=== PATIENT | female | born 1960 | race Caucasian/White ===

== ENCOUNTER 2018-07-02 11:23 | Inpatient (IN) | payer OTHER ==
[2018-07-02] MEDS ORDERED: ACETAMINOPHEN 325 MG TAB ONE ×3 (11:38→19:41)
[2018-07-02] MEDS ORDERED: ACETAMINOPHEN 325 MG TAB PO ONE ×3 (11:47→19:45)
[2018-07-02 12:04] LABS: PLATELET COUNT 229 10^3/uL (150-400)
--- NOTE | 2018-07-02 12:36 | EDPHY ---
H & P Time Seen by Provider: 07/02/18 11:32 HPI/ROS: CHIEF COMPLAINT: M1 hold, noncompliant with medications HISTORY OF PRESENT ILLNESS: 57-year-old female with a known history of schizoaffective disorder presents to the emergency department on M1 hold. Patient has been noncompliant with her court-ordered medications and she is delusional. She was just at [facility] and they sent her here on M1 hold. Patient denies suicidal homicidal ideation. Denies auditory or visual hallucinations. She currently has no physical complaints. She states"I am because I feel movement". She does also state "I am postmenopausal ". She denies chest pain or difficulty breathing. Denies abdominal pain. Denies headache. Denies injury to upper or lower extremities. She drinks 1 beer per day. She smokes cigarettes. She denies any other substance abuse. REVIEW OF SYSTEMS: Constitutional: No fever, no chills. Eyes: No double or blurry vision. ENT: No sore throat. Respiratory: No cough, no shortness of breath. Cardiac: No chest pain. Gastrointestinal: No abdominal pain, vomiting or diarrhea. Genitourinary: No dysuria. Musculoskeletal: No neck or back pain. Skin: No rashes. Neurological: No headache. Past Medical/Surgical History: Schizoaffective disorder noncompliant with court-ordered medications Social History: Single and lives alone in [place] Smoking Status: Current some day smoker Physical Exam: General Appearance: Alert, no distress. Eyes: Pupils equal and round. Extraocular motions are all intact. ENT: Mouth: Mucous membranes moist. Poor dentition. Missing numerous teeth. Respiratory: No wheezing, rhonchi, or rales, lungs are clear to auscultation. Cardiovascular: Regular rate and rhythm. Gastrointestinal: Abdomen is obese and soft and nontender, no masses, no rebound or guarding, bowel sounds normal. Neurological: Alert and oriented x 3, cranial nerves II through XII grossly intact Skin: Warm and dry, no rashes. Musculoskeletal: Nontender to palpate along the cervical, thoracic or lumbar spine. Neck is supple. Extremities: Full range of motion and no peripheral edema. Psychiatric: Patient is oriented X 3, there is no agitation. Constitutional: Initial Vital Signs Temperature (C) 36.6 C 07/02/18 12:19 Heart Rate 89 07/02/18 12:19 Respiratory Rate 18 07/02/18 12:19 Blood Pressure 134/81 H 07/02/18 12:19 O2 Sat (%) 95 07/02/18 12:19 O2 Delivery Mode Room Air Allergies/Adverse Reactions: No Known Allergies Allergy (Unverified 07/02/18 15:02) Medical Decision Making ED Course/Re-evaluation: The patient has been medically cleared and is awaiting mental health evaluation. The patient has been evaluated by mental health and they are looking for placement. She is kept on M1 hold. Differential Diagnosis: Depression including functional and major depression, situational depression, medication side effect, drugs and alcohol abuse. Care Turn Over: Care will be turned over to Dr. Brooks Cordero at 5:00 p.m. For disposition and plan. - Data Points Laboratory Results: Laboratory Results 07/02/18 11:45 07/02/18 11:45 07/02/18 07/02/18 07/02/18 11:45 11:45 11:45 WBC RBC Hgb Hct MCV MCH MCHC RDW Plt Count MPV Neut % (Auto) Lymph % (Auto) [place] % (Auto) Eos % (Auto) Baso % (Auto) Nucleat RBC Rel Count Absolute Neuts (auto) Absolute Lymphs (auto) Absolute Monos (auto) Absolute Eos (auto) Absolute Basos (auto) Absolute Nucleated RBC Immature Gran % Immature Gran # Sodium 144 mEq/L mEq/L (135-145) Potassium 4.4 mEq/L mEq/L (3.3-5.0) Chloride 112 mEq/L H mEq/L (97-110) Carbon Dioxide 22 mEq/l mEq/l (22-31) Anion Gap 10 mEq/L mEq/L (8-16) BUN 9 mg/dL mg/dL (7-23) Creatinine 0.8 mg/dL mg/dL (0.6-1.0) Estimated GFR > 60 Glucose 109 mg/dL H mg/dL (70-100) Calcium 10.3 mg/dL mg/dL (8.5-10.4) TSH 1.200 uIU/mL uIU/mL (0.465-4.680) Beta HCG, Qual NEGATIVE Urine Opiates Screen NEGATIVE (NEGATIVE) Urine Barbiturates NEGATIVE (NEGATIVE) Ur Phencyclidine Scrn NEGATIVE (NEGATIVE) Ur Amphetamine Screen NEGATIVE (NEGATIVE) U Benzodiazepines Scrn NEGATIVE (NEGATIVE) Urine Cocaine Screen NEGATIVE (NEGATIVE) U Marijuana (THC) Screen NEGATIVE (NEGATIVE) Ethyl Alcohol < 10 mg/dL mg/dL (0-10) 07/02/18 11:45 WBC 7.35 10^3/uL 10^3/uL (3.80-9.50) RBC 5.47 10^6/uL H 10^6/uL (4.18-5.33) Hgb 17.6 g/dL H g/dL (12.6-16.3) Hct 51.6 % H % (38.0-47.0) MCV 94.3 fL fL (81.5-99.8) MCH 32.2 pg pg (27.9-34.1) MCHC 34.1 g/dL g/dL (32.4-36.7) RDW 13.1 % % (11.5-15.2) Plt Count 229 10^3/uL 10^3/uL (150-400) MPV 9.6 fL fL (8.7-11.7) Neut % (Auto) 50.0 % % (39.3-74.2) Lymph % (Auto) 36.5 % % (15.0-45.0) [place] % (Auto) 8.6 % % (4.5-13.0) Eos % (Auto) 3.4 % % (0.6-7.6) Baso % (Auto) 1.1 % % (0.3-1.7) Nucleat RBC Rel Count 0.0 % % (0.0-0.2) Absolute Neuts (auto) 3.68 10^3/uL 10^3/uL (1.70-6.50) Absolute Lymphs (auto) 2.68 10^3/uL 10^3/uL (1.00-3.00) Absolute Monos (auto) 0.63 10^3/uL 10^3/uL (0.30-0.80) Absolute Eos (auto) 0.25 10^3/uL 10^3/uL (0.03-0.40) Absolute Basos (auto) 0.08 10^3/uL 10^3/uL (0.02-0.10) Absolute Nucleated RBC 0.00 10^3/uL 10^3/uL (0-0.01) Immature Gran % 0.4 % % (0.0-1.1) Immature Gran # 0.03 10^3/uL 10^3/uL (0.00-0.10) Sodium Potassium Chloride Carbon Dioxide Anion Gap BUN Creatinine Estimated GFR Glucose Calcium TSH Beta HCG, Qual Urine Opiates Screen Urine Barbiturates Ur Phencyclidine Scrn Ur Amphetamine Screen U Benzodiazepines Scrn Urine Cocaine Screen U Marijuana (THC) Screen Ethyl Alcohol Medications Given: Discontinued Medications Acetaminophen (Tylenol) 650 mg PO EDNOW ONE Stop: 07/02/18 11:48 Last Admin: 07/02/18 11:48 Dose: 650 mg Acetaminophen (Tylenol) 650 mg PO EDNOW ONE Stop: 07/02/18 16:01 Last Admin: 07/02/18 16:01 Dose: 650 mg Departure - Departure Clinical Impression: Schizoaffective disorder Qualifiers: Schizoaffective disorder type: unspecified Qualified Code(s): F25.9 - Schizoaffective disorder, unspecified Condition: Good Referrals: Stefany Cope MD [Primary Care Provider] - As per Instructions
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
[2018-07-02] MEDS ORDERED: ALBUTEROL HFA ANES ONLY 200 PUFFS/8.5 GM MDI IH PRN (17:17)
--- NOTE | 2018-07-02 17:17 | PDCONSULT ---
Etcher Machine Note: CHIEF COMPLAINT: M1 hold, noncompliant with medications, cough HISTORY OF PRESENT ILLNESS: This is a 57 yo female with a known history of schizoaffective disorder who presented to the emergency department on M1 hold due to noncompliant with her court-ordered medications. She was found to have active delusions including reporting that she was , post menopausal. The M1 hold has been continued and she is being transferred to [facility] for further psychiatric care. From a medical perspective, obtaining a history is very difficult due to her active delusions. She does report occasional cough but cannot answer if she has had a fever or other. She does not use supplemental O2. She is not noted to be hypoxic and is saturating ok on RA. She is not in resp distress. She c/o of pain all over but cannot localize. She does not localize her pain to her chest. She denies abd pain on examination. She does report leg pain but upon further questioning denies it. She does not have leukocytosis. labs are reviewed and are unremarkable. She drinks 1 beer per day. She smokes cigarettes. She denies any other substance abuse. REVIEW OF SYSTEMS: Per above to include the following: Constitutional: No fever, no chills. Eyes: No double or blurry vision. ENT: No sore throat. Respiratory: occasional cough and shortness of breath. Cardiac: No chest pain. no leg swelling Gastrointestinal: No abdominal pain, vomiting or diarrhea. Genitourinary: No dysuria. Musculoskeletal: No neck or back pain. Skin: No rashes. Neurological: No headache. Past Medical/Surgical History: Schizoaffective disorder noncompliant with court-ordered medications Social History: Single and lives alone in [place] Smoking Status: Current some day smoker Physical Exam: General Appearance: Alert, anxious Eyes: Pupils equal and round. Extraocular motions are all intact. ENT: Mouth: Mucous membranes moist. Poor dentition. Missing numerous teeth. Respiratory: mild wheezing. no rhonchi, or rales. normal work of breathing Cardiovascular: Regular rate and rhythm. Gastrointestinal: Abdomen is obese and soft and nontender, no masses, no rebound or guarding, bowel sounds normal. Neurological: Alert and oriented, cranial nerves II through XII grossly intact Skin: Warm and dry, no rashes. Musculoskeletal: Nontender to palpate along the cervical, thoracic or lumbar spine. Neck is supple. Extremities: Full range of motion and no peripheral edema. Psychiatric: Patient has active delusions. Initial Vital Signs Temperature (C) 36.6 C 07/02/18 12:19 Heart Rate 89 07/02/18 12:19 Respiratory Rate 18 07/02/18 12:19 Blood Pressure 134/81 H 07/02/18 12:19 O2 Sat (%) 95 07/02/18 12:19 O2 Delivery Mode Room Air Allergies/Adverse Reactions: No Known Allergies Allergy (Unverified 07/02/18 15:02) A/p #psychosis with active delusion #daily tobacco use #cough and mild wheezing. Likely some component of obstructive lung disease Plan: Admission to [address] [place] [address] per their team I've reviewed all labs She is medically cleared I do think she should be on an inhaler and I will prescribe Albuterol initially. Please call us if there are further questions Thank you for this consultation
[2018-07-02] MEDS ORDERED: ALBUTEROL 60 PUFFS/8 GM MDI IH PRN (21:00)
[2018-07-02] MEDS ORDERED: MAG HYDROX/AL HYDROX/SIMETH 30 ML UDCUP PO PRN (21:14)
[2018-07-02] MEDS ORDERED: ACETAMINOPHEN 325 MG TAB PO PRN (21:14)
[2018-07-02] MEDS ORDERED: LORazepam 0.5 MG TAB PO PRN (21:14)
[2018-07-02] MEDS ORDERED: MAGNESIUM HYDROXIDE 30 ML UDCUP PO PRN (21:14)
[2018-07-02] MEDS ORDERED: OLANZapine 5 MG TAB PO PRN (21:15)
[2018-07-02] MEDS ORDERED: MELATONIN 3 MG TAB PO PRN (21:17)
[2018-07-02] MEDS: ALBUTEROL 60 PUFFS/8 GM MDI IH PRN (22:20)
[2018-07-03] MEDS: ACETAMINOPHEN 325 MG TAB PO PRN ×3 (01:26→20:32)
[2018-07-03] MEDS: BENZTROPINE MESYLATE 1 MG TAB PO SCH ×2 (07:45→20:20)
[2018-07-03] MEDS: HALOPERIDOL 5 MG TAB PO SCH ×2 (07:46→20:21)
[2018-07-03] MEDS: ATORVASTATIN CALCIUM 20 MG TAB PO SCH (07:46)
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
--- NOTE | 2018-07-03 09:03 | ASMTCMCOM ---
CM Note CM Note Notes: CC met with ct. to develop MTP. Ct. presented as somewhat disheveled She giggled often and appeared to have elevated mood. Ct. believes that she is 5 months prenant and has not been taking her medications out of consideration of the well being of the fetus Ct. refused to sign [facility]ICK[facility] to [facility]. She also reported not being interested in attending groups. Date Signed: 07/03/2018 09:03 AM Electronically Signed By:Belén Gomez
[2018-07-03] MEDS: LEVOTHYROXINE 25 MCG TAB PO SCH (11:26)
[2018-07-03] MEDS: IBUPROFEN 200 MG TAB PO PRN ×2 (12:15→18:18)
[2018-07-03] MEDS ORDERED: BENZTROPINE MESYLATE 2 MG/2 ML INJ IM PRN (12:53)
[2018-07-03] MEDS ORDERED: HALOPERIDOL LACT 5 MG/ML INJ IM PRN ×2 (12:55→13:01)
[2018-07-03] MEDS ORDERED: OLANZapine 10 MG/2 ML VIAL IM PRN (13:18)
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
[2018-07-03] MEDS ORDERED: HALOPERIDOL 10 MG TAB PO SCH (17:00)
[2018-07-03] MEDS: ALBUTEROL 60 PUFFS/8 GM MDI IH PRN (17:31)
--- NOTE | 2018-07-03 18:03 | PDMN ---
Medical Necessity Medical necessity: Pt meets inpt criteria per MD order and [facility] B-[id number], Schizophrenia Spectrum Disorders, Adult: Inpatient Care, 6 days. Est LOS>2MN for management of schizoaffective disorder, bipolar type, nonadherence to medical treatment, admitted on M1 Hold.
[2018-07-03] MEDS: DIVALPROEX ER 500 MG TAB PO SCH (20:21)
[2018-07-03] MEDS ORDERED: DIVALPROEX ER 500 MG TAB PO SCH (21:00)
[2018-07-04] MEDS: IBUPROFEN 200 MG TAB PO PRN ×4 (03:29→22:33)
[2018-07-04] MEDS: ATORVASTATIN CALCIUM 20 MG TAB PO SCH ×2 (08:35→09:24)
[2018-07-04] MEDS: HALOPERIDOL 5 MG TAB PO SCH ×2 (08:35→17:22)
[2018-07-04] MEDS: BENZTROPINE MESYLATE 1 MG TAB PO SCH ×2 (08:36→20:08)
[2018-07-04] MEDS: LEVOTHYROXINE 25 MCG TAB PO SCH (09:15)
[2018-07-04] MEDS: ALBUTEROL 60 PUFFS/8 GM MDI IH PRN ×2 (09:35→20:12)
[2018-07-04] MEDS: ACETAMINOPHEN 325 MG TAB PO PRN ×2 (12:48→20:07)
[2018-07-04] MEDS: NICOTINE POLACRILEX 2 MG GUM B PRN (12:58)
--- NOTE | 2018-07-04 16:42 | SOAPPROG ---
SOAP Progress Note Assessment/Plan: Assessment: 57 yo with h/o Schizophrenia with delusion that she is . She has been off meds for unknown length of time. She is currently on LTC/COM which on 07/31/2018. Plan: 07/04/18 16:38 1. Patient refused Lipitor this AM b/c she read drug information handout that said you shouldn't take it if . However, after refusing antipsychotic meds for same reason, she took PO Haldol this AM. 2. Patient missed last Haldol Dec injection in 05/2018. 3. Patient is on LTC/COM that expires on 07/31/18. Subjective: Patient is wearing sweater and sunglasses on unit even though it is > 75 deg outside and the lighting is not very bright inside. Patient took Haldol this AM despite refusing yesterday b/c she claims she is . However, she refused her Lipitor for first time b/c she read that it shouldn't be taken during . has explained to patient many times during this hospitalization and a previous admission that she is not , however, she is convinced it' s true. Objective: Vital Signs Temp Pulse Resp BP Pulse Ox 36.6 C 67 14 123/58 H 93 07/04/18 06:00 07/04/18 06:00 07/04/18 06:00 07/04/18 06:00 07/04/18 06:00 MSE: Affect: Flat Mood: "OK" TP: Disorganized, illogical TC: Denies SI/HI Insight/Judgment: Impaired - Time Spent With Patient Time Spent With Patient: 15" - Pending Discharge Pending Discharge Within 24 Hours: No Pending Discharge Within 48 Hours: No ICD10 Worksheet Patient Problems: Problems Problem Status Onset Schizoaffective disorder Acute
[2018-07-04] MEDS: DIVALPROEX ER 500 MG TAB PO SCH (20:08)
[2018-07-05] MEDS: ALBUTEROL 60 PUFFS/8 GM MDI IH PRN ×2 (05:26→23:42)
[2018-07-05] MEDS: IBUPROFEN 200 MG TAB PO PRN ×3 (05:26→20:22)
[2018-07-05] MEDS: BENZTROPINE MESYLATE 1 MG TAB PO SCH ×2 (08:15→20:21)
[2018-07-05] MEDS: HALOPERIDOL 5 MG TAB PO SCH ×2 (08:15→17:26)
[2018-07-05] MEDS: LEVOTHYROXINE 25 MCG TAB PO SCH (10:07)
[2018-07-05] MEDS: NICOTINE POLACRILEX 2 MG GUM B PRN (10:36)
[2018-07-05] MEDS: ATORVASTATIN CALCIUM 20 MG TAB PO SCH (10:39)
[2018-07-05] MEDS: ACETAMINOPHEN 325 MG TAB PO PRN ×2 (10:43→23:40)
--- NOTE | 2018-07-05 14:22 | ASMTCMCOM ---
CM Note CM Note Notes: CC checked in with the patient; she reported that she anticipates discharging today given her M1 hold expires at 11:00. CC explained that [facility] transferred the patient's LTC and [facility] to [facility]; allowing us to continue treatment. The patient expressed her disappointment, reiterating that she was prepared to return home. The patient plans to run errands including grocery shopping, the bank, etc. The patient stated that she was "reluctantly" taking her medications while in the hospital and that she would only continue to comply with medication outpatient if her doctor approved. The patient reported that her doctors have previously suggested against her taking antipsychotics during her ; she reported that although she was skipping her evening medications she was compliant with her morning medications prior to hospitalization. Additionally, she reported that she did not take her "true dose" for "three weeks in April." CC explained that there was not medical evidence to support the patient's and the patient denied that her is a delusion. She further reported that her "triplets were surgically removed in 2012 and the babies were deformed because of the antipsychotics." The patient stated that she is comfortable making her own outpatient appointments. The patient requested accompanied grounds. Date Signed: 07/05/2018 10:39 AM Electronically Signed By:Jennifer Miller
--- NOTE | 2018-07-05 16:24 | SOAPPROG ---
SOAP Progress Note Assessment/Plan: Assessment: 57 yo with h/o Schizophrenia with delusion that she is . She has been off meds for unknown length of time. She is currently on LTC/COM which on 07/31/2018. Plan: 07/04/18 16:38 1. Patient refused Lipitor this AM b/c she read drug information handout that said you shouldn't take it if . However, after refusing antipsychotic meds for same reason, she took PO Haldol this AM. 2. Patient missed last Haldol Dec injection in 05/2018. 3. Patient is on LTC/COM that expires on 07/31/18. 07/05/18 16:17 1. Patient admitted to noncompliance with medications since April. It's unlikely patient needs to be on higher doses of meds or any additional medications. The recurrence of sxs and her acute presentation are undoubtedly d/t lack of compliance with treatment and not d/t lack of efficacy of her meds. 2. Patient has been compliant with psych meds this w/e. 3. Patient is eating and sleeping well. 4. Patient completed safety plan appropriately. 5. LTC/COM Subjective: Patient told CC she had not taken any meds for at least 3 weeks in April and was only taking her AM meds in May. According to message from her outpatient psychiatrist, Dr. Ruiz, he wanted her on higher dose of Depakote. He thought her dose of Depakote "needs to be increased by at least 500mg." He also thought she had been noncompliant for "about a week." The truth is that she had been noncompliant for longer than Dr. Ruiz or [facility] staff knew about. In that case, increasing her Depakote makes little sense b/c it was her lack of compliance, not the dose, that posed risk of decompensation. Also, patient has fixed delusion about being . Chronic, fixed delusions do not respond to tx with AED mood stabilizers, and are also very difficult to tx with AP meds. Objective: Vital Signs Temp Pulse Resp BP Pulse Ox 36.6 C 67 14 123/58 H 93 07/04/18 06:00 07/04/18 06:00 07/04/18 06:00 07/04/18 06:00 07/04/18 06:00 MSE: Affect: Euthymic Mood: "Good" TP: Linear, goal-directed, illogical only in regard to TC: Fixed delusions, no other sxs of psychosis Insight/ Judgment: Poor - Time Spent With Patient Time Spent With Patient: 15" - Pending Discharge Pending Discharge Within 24 Hours: No Pending Discharge Within 48 Hours: No ICD10 Worksheet Patient Problems: Problems Problem Status Onset Schizoaffective disorder Acute
[2018-07-05] MEDS: DIVALPROEX ER 500 MG TAB PO SCH (20:21)
[2018-07-06] MEDS: IBUPROFEN 200 MG TAB PO PRN ×2 (04:49→15:00)
[2018-07-06] MEDS: LEVOTHYROXINE 25 MCG TAB PO SCH ×2 (06:44→08:30)
--- NOTE | 2018-07-06 07:14 | SOAPPROG ---
SOAP Progress Note Assessment/Plan: Assessment: Schizoaffective, bipolar type. Slight improvement noted. (see subjective/ objective note). Patient is not safe to discharge at this time as patient continues to exhibit signs of psychosis, and express psychotic symptoms. Patient requires continued inpatient care because of current psychosis, and requires inpatient level of care to stabilize in order to no be gravely disabled due to mental illness. Patient could benefit from continued inpatient hospitalization for crisis stabilization, safety, and medication evaluation. Patient could benefit from Haldol DEC FREIRE due to history of non-adherence leading to rehospitalization and VPA level prior to discharge. Plan: (1) Psychotropic medications: After reviewing options, risks, and benefits patient agrees to continue current medications with following changes: Haldol DEC FREIRE prior to discharge. No other medication changes at this time as more time is needed to determine ongoing tolerability and efficacy. Plan is to continue to observe patient for response and side effects from medications, and ongoing monitoring and evaluation. (2) Review with patient informed consent and recommendations for psychotropic medication treatment listed below (3) Labs: VPA level prior to discharge (4) Therapy: continue milieu and group therapy (5) Further investigation including gathering information from patients relatives and review of past case records to inform treatment plan. (6) Safety/Wellness plan and follow-up outpatient appointments to be established prior to discharge. Next steps are for patient to meet with point of care specialist to plan a safe discharge plan and establish outpatient services for ongoing treatment. (7) Confer with inpatient treatment team regarding treatment plan. (8) Legal status: [facility] (9) Consider discharge today or Friday if patient is in stable condition, safe , and has a safe discharge plan. PSYCHOTROPIC MEDICATION TREATMENT INFORMED CONSENT and RECOMMENDATIONS: Review nature of condition, diagnosis, and prognosis. Review nature and purpose of psychotropic medication treatment. Review type of psychotropic medications being ordered. Review risk and benefits of psychotropic medication treatment. Review probable length of time patient will need to take medications. Review risk and benefits of not undergoing psychotropic medication treatment. Review alternative treatments to psychotropic medications. Review psychotropic medications contraindications, drug-drug interactions, side effects, and importance of reporting any side effects to a psychiatric provider or nurse during inpatient hospitalization, and upon discharge to patients psychiatric outpatient provider, primary care provider, or other health home day care provider. Review importance of asking a nurse, psychiatric provider, or primary care provider any questions or problems concerning the psychotropic medications. Verify patient understands the information that has been provided, and understands, accepts, and agrees to psychotropic medications. Review patients safety plan and importance of patient to report to staff while hospitalized if patient is ever a danger to self/others, or unable to care for self, and upon discharge, the importance for patient to contact [facility] or [facility], or go to the nearest emergency room, if patient is ever a danger to self/others, or unable to care for self. Recommend that upon discharge patient establish medication management treatment with a psychiatric provider, establishes routine therapy appointments, and follow-up with primary care provider. Verify patient understands and agrees to these recommendations. 07/06/18 07:14 Subjective: Following up with patient for evaluation of psychosis, lori, and safety. Patient reports, "I will take the medications, but I am , will the medications affect my baby?" Patient expresses the following psychiatric symptoms none. Patient reports taking medications as prescribed, and describes response to medications as okay. Patient does not report undesirable side effects from the medications. Patient agrees to continue current medications and agrees to Haldol DEC 100 mg IM and VPA level prior to discharge. Patient reports appetite as good, and reports eating all meals. Patient describes getting 10 hours of sleep. Objective: Vital Signs Temp Pulse Resp BP Pulse Ox 36.6 C 67 14 123/58 H 93 07/04/18 06:00 07/04/18 06:00 07/04/18 06:00 07/04/18 06:00 07/04/18 06:00 NURSING REPORT: Consulted with nursing for update on patients progress in treatment. Nurses report patient is not engaged in treatment, is attending some groups, slept 8 hours, expresses the following psychiatric symptoms: delusions regarding being , exhibits the following psychiatric symptoms : delusional, is eating all meals, is taking medications as prescribed with no report of side effects, with no s/s of EPS/akathisia, and denies SI/HI, denies A /V hallucinations. Nurses report patient has improved considerably since admission. CORN DETASSELER UPDATE: establishing follow-up appointments with [facility]. REPORT FROM IAN: no change; taking medications, seems stable; fixed delusions regarding ; admits not taking medications since April MSE: The patient is a well-nourished female looking older than chronological age. Attire is inappropriate and dress is casual, disheveled. Grooming status is inappropriate and disheveled. Ambulation is independent. Gait is normal and coordinated. Posture is normal and relaxed. Eye contact is appropriate, and adequate. Motor activity is appropriate with purposeful, organized, coordinated movements; with no involuntary movements. Attitude is cooperative and friendly. Patient appears attentive and relates well to this interviewer. Language production is spontaneous. R/R/V normal. Articulation is clear. Patient reports mood as good with congruent affect. Patients thought process is linear, organized. Associations are loose. Patient does not report suicidal /homicidal thoughts, ideas, or plans. Patient denies auditory, visual hallucinations. Patient reports delusions. Patient does not appear to be attending to internal stimuli. Patients attention and concentration are poor. Patient is oriented to person, place. Patients insight is poor. Patients judgment is improved as evidenced by adherence to medications. - Time Spent With Patient Time Spent With Patient: 15 minutes, met with patient individually. - Pending Discharge Pending Discharge Within 24 Hours: Yes Pending Discharge Within 48 Hours: No Pending Discharge Date: 07/07/18 Pending Discharge Time: 11:00 ICD10 Worksheet Patient Problems: Problems Problem Status Onset Schizoaffective disorder Acute
[2018-07-06] MEDS: BENZTROPINE MESYLATE 1 MG TAB PO SCH ×2 (08:30→20:26)
[2018-07-06] MEDS: HALOPERIDOL 5 MG TAB PO SCH ×3 (08:30→17:50)
[2018-07-06] MEDS: ATORVASTATIN CALCIUM 20 MG TAB PO SCH (08:31)
[2018-07-06] MEDS ORDERED: HALOPERIDOL DEC (LONG-ACTING) 50 MG/ML VIAL IM ONE (09:00)
--- NOTE | 2018-07-06 11:27 | ASMTCMCOM ---
CM Note CM Note Notes: Client remains in-patient, doing better per provider with likely discharge this week. Client suggests that she is "doing good, feel better." Additionally, patient reports no feelings of anxiety, depression, S/I-H/I and/or AVH. Pt notes sleeping "8 hours," last night. Client is open to [facility] as well as seeks out-patient care through them. Client is tangential at times, affect is appropriatdem to place and displays a mostly pleasant demeanor most of the time. Date Signed: 07/06/2018 11:26 AM Electronically Signed By:Lavell Kent
[2018-07-06] MEDS ORDERED: DIVALPROEX ER 500 MG TAB PO SCH (11:45)
[2018-07-06] MEDS: NICOTINE POLACRILEX 2 MG GUM B PRN (20:26)
[2018-07-07] MEDS: IBUPROFEN 200 MG TAB PO PRN ×2 (01:53→09:46)
[2018-07-07] MEDS: ACETAMINOPHEN 325 MG TAB PO PRN (04:35)
[2018-07-07] MEDS: LEVOTHYROXINE 25 MCG TAB PO SCH (05:31)
[2018-07-07 07:06] VITALS: BP 113/60
[2018-07-07] MEDS: ATORVASTATIN CALCIUM 20 MG TAB PO SCH (08:27)
[2018-07-07] MEDS: BENZTROPINE MESYLATE 1 MG TAB PO SCH (08:27)
[2018-07-07] MEDS: HALOPERIDOL 5 MG TAB PO SCH (08:27)
[2018-07-07] MEDS: ALBUTEROL 60 PUFFS/8 GM MDI IH PRN (08:51)
--- NOTE | 2018-07-07 10:23 | ASMTBHDC ---
Notes Note: Notes: CC confirmed follow up discharge appts: Follow Up With: [facility] [address] [place], [address] O# [phone] Appointment with Vince Ruiz MD: July 09 (07/09/18) at 9:15am with Dr. Ruiz. Appointment with clinician Dora White at [facility] (office at her apartment building) this FridayJuly 10 (07/10/18) at 11 a.m. Date Signed: 07/07/2018 10:22 AM Electronically Signed By:Lavell Kent
--- NOTE | 2018-07-07 11:48 | BDS ---
REASON FOR ADMISSION: From the ED note dated 07/02/2018, the patient has a known history of schizoaffective disorder, presents to the emergency department on an M1 hold. The patient has been noncompliant with her court-ordered medications, and the patient is delusional upon presentation at the ED. The patient was placed on an M1 hold by [facility]. In the ED, the patient denied suicidal and homicidal ideation. The patient denied auditory and visual hallucinations. The patient had no physical complaints. The patient did state in the ED, "I am because I feel movement." The patient also stated, "I am postmenopausal." Patient denied chest pain or difficulty breathing. Denied abdominal pain. Denied headache. Denied injury to upper or lower extremities. The patient reported smoking cigarettes and drinking 1 beer per day. The patient denied any other substance abuse. The patient was admitted involuntarily due to being gravely disabled due to a mental illness. The patient was admitted for safety, crisis stabilization, and medication management. ADMITTING DIAGNOSES: 1. Schizoaffective disorder. 2. Nonadherence to medical treatment. 3. Nicotine dependence. ADMISSION PHYSICAL EXAM: The patient was seen on 07/02/2018, for an internal medicine consultation for medical clearance for inpatient psychiatric hospitalization. The patient was medically cleared for inpatient psychiatric hospitalization and treatment. For further details, please refer to consult note dated 07/02/2018. ADMISSION LABS: CBC from 07/02/2018: Within normal limits except red blood cells were elevated at 5.47, hemoglobin was elevated at 17.6, hematocrit was elevated at 51.6. Chemistry from 07/02/2018, within normal limits except chloride was elevated at 112 and glucose was slightly elevated at 109. Hemoglobin A1c from 07/02/2018: Within normal limits. Liver function from 03/2018: Within normal limits. Fasting lipid panel from 07/02/2018: Triglycerides elevated at 272, cholesterol elevated at 230, cholesterol risk factor was elevated at 1.8, LDL cholesterol calculated was elevated at 139, LDL risk factor was elevated at 1.2, VLDL cholesterol was elevated at 54, non-HDL cholesterol was elevated at 193, HDL cholesterol was elevated at 37, LDL/HDL ratio was elevated at 3.75, and cholesterol/HDL ratio was elevated at 6.22. TSH from 07/02/2018, was within normal limits at 1.200. Beta hCG qualitative test from 07/02/2018, was negative. Specimen hemolysis from 2017, was within normal limits at 107. The toxicology screen from 07/02/2018: Negative for all substances of abuse, negative for ethyl alcohol. Valproic acid was less than 10.0. On 07/06/2018, valproic acid level was 62.9 at the following dose, Depakote ER 2000 mg p.o. q.h.s. MAJOR PROCEDURES OR TESTS: None. HOSPITAL COURSE: The most prominent symptoms and behaviors while the patient was here were disorganized thought process, delusional thought content, and patient was agitated and irritable. Target symptoms during hospitalization, psychosis. Treatment modalities utilized were milieu and group therapy. Haldol 5 mg p.o. daily was continued to target psychosis symptoms, and was tolerated with no report of side effects and with good response. Haldol 10 mg p.o. daily at 1800 was continued to target psychosis symptoms, and was tolerated with no report of side effects and with good response. Depakote ER was increased to 2000 mg p.o. q.h.s. to target mood symptoms, and was tolerated with no report of side effects and with fair response. VPA level at this dose was 62.9. Depakote ER was titrated to 2500 mg p.o. q.h.s. to target mood symptoms, and was tolerated with no report of side effects and with good response. Haldol DEC 100 mg IM was administered on 07/06/2018, to target psychosis symptoms, and was tolerated with no report of side effects and with good response. Additional outpatient medications were continued, including Synthroid 25 mcg p.o. daily at 1000, Lipitor 20 mg p.o. daily, Cogentin 1 mg p.o. b.i.d. for EPS prophylaxis, albuterol 2 puffs inhale q.4 hours p.r.n. The patient reports she has improved since admission. States to be in stable condition. Feels safe to discharge, and she contracts for safety. The patient has improved considerably, with no signs of psychiatric symptoms and expressing a fixed delusion of being upon discharge. Patient's overall response to treatment was good. There were no adverse or unexpected results of treatment. The patient was safe throughout her stay, active in treatment, attended and engaged in groups, and was appropriate with staff and other patients. The treatment team consensus is the patient is in stable condition and is safe to discharge today. The patient prior to discharge met with the entire treatment team, including this PROGRESSIVE ASSEMBLER AND FITTER, psychiatrist, daycare director, and therapist to review patient's discharge plan. The patient responded well to this meeting and reports that she looks forward to discharging today. CONDITION AT DISCHARGE: The patient is in stable condition and is no longer a danger to self or others, and is not gravely disabled due to a mental illness. The patient is no longer in need of inpatient level of care and can safely and effectively be treated within the community. The patient's level at risk at time of discharge is low. MENTAL STATUS EXAM: The patient is a well-nourished , well-developed female looking older than stated chronological age. Attire is appropriate. Dress is casual and neat and clean. Grooming status is inappropriate and disheveled. Ambulation is independent. Gait is normal and coordinated. Posture is normal and relaxed. Eye contact is appropriate and adequate. Motor activity is appropriate with purposeful, organized, coordinated movements, with no involuntary movements noted. Attitude is cooperative and friendly. The patient appears attentive and relates well to this interviewer. Language production is spontaneous. Rate, rhythm, and volume are normal. Articulation is clear. The patient reports mood as okay with appropriate and congruent affect. Patient's thought process is linear and logical, with no loose associations, tangential thought, thought blocking, concrete thinking, or any other signs of formal thought disorder. The patient does not report suicidal or homicidal thoughts, ideas, or plans. The patient denies auditory or visual hallucinations. The patient reports delusions. Delusion is a fixed delusion regarding the patient reporting that she is . The patient does not appear to be attending to internal stimuli. The patient is oriented to person, place, time, and situation. Patient's attention and concentration are fair. The patient's insight is fair. The patient's judgment is fair. There is no gross cognitive dysfunction at any point during the interview, and no evidence of apparent dysfunction in recent or remote memory noted. The patient does not report undesirable side effects from the current medications. DISCHARGE DIAGNOSES: 1. Schizoaffective disorder. 2. Nicotine dependence. CURRENT MEDICATIONS: Collaborating with the patient's outpatient provider, [facility] at the [facility], and based on [facility]' recommendations, the following medications were called in to [facility] with instructions to be delivered to [facility]: 1. Lipitor 20 mg p.o. daily #30. 2. Cogentin 1 mg p.o. twice daily #60. 3. Depakote ER 500 mg tablet 2500 mg p.o. at bedtime #150. 4. Haldol Decanoate 100 mg IM as directed by patient's outpatient provider, [facility], with next IM injection due 08/03/2018. 5. Haldol 5 mg p.o. daily. 6. Haldol 10 mg p.o. daily at 1700. 7. Synthroid 25 mcg p.o. daily at 1000. 8. Albuterol 2 puffs inhale or IH q.4 hours p.r.n. Medications are reviewed with patient at time of discharge to ensure accuracy and patient understanding. Patient's medication management to be continued at [facility]. Patient is not interested in nicotine replacement or medication for nicotine dependence at this time. DISPOSITION: The patient left hospital today independently and voluntarily, with plans to go to her outpatient appointment at [facility]. hearing screen coordinator to provide patient with followup for outpatient appointments. FOLLOWUP: hearing screen coordinator reports the appropriate outpatient follow-up services have been established and outpatient appointments have been scheduled. The patient received written instructions with times and dates of outpatient follow-up appointments. The following follow-up recommendations were provided to the patient at discharge: Continue psychotropic medications as prescribed and attend appointments as scheduled. Report any side effects to a psychiatric outpatient provider, a primary care provider, or other health direct care counselor. Address any questions or problems concerning the psychotropic medications with a psychiatric outpatient provider, a primary care provider, or other health direct care counselor. Contact [facility] or [facility], or go to the nearest emergency room, if you are ever a danger to yourself/others, or unable to care for yourself. As soon as possible, establish a routine medication management treatment with a psychiatric provider, establish routine therapy appointments, and follow-up with a primary care provider. LEGAL COURSE: The patient was admitted on an M1 hold. Patient is also on a long-term certification and court-ordered medications. The patient discharged today independently and voluntarily from the hospital, with plans to continue treatment at [facility]. ATTITUDE AT TIME OF DISCHARGE: The patient reports, "I am ready to discharge today." With regard to adherence to taking medications as prescribed, the patient reports, "Yes, I will take my medications." The patient's attitude was positive at time of discharge, and the patient reports looking forward to discharging today. The patient reports she feels safe to discharge, is no longer a danger to herself or others, is in stable condition, and contracts for safety. The patient states she will continue current medications as prescribed and continue medication management treatment at [facility] after discharge. The patient reports she understands the information that has been provided to her, and she understands, accepts, and agrees to psychotropic medications. Patient describes internal protective factors as the coping skills she has learned while hospitalized here, and she plans to continue to practice these coping skills after discharge. LABS AND STUDIES: There were no pending labs or studies at time of discharge. ADVANCED DIRECTIVES: There were no advance directives on file, and the patient was full code during this hospitalization. The following psychotropic medication treatment informed consent and recommendations were provided to the patient at time of discharge. Patient reports she understands, accepts, and agrees to the information that has been provided. PSYCHOTROPIC MEDICATION TREATMENT INFORMED CONSENT and RECOMMENDATIONS: Review nature of condition, diagnosis, and prognosis. Review nature and purpose of psychotropic medication treatment. Review type of psychotropic medications being prescribed. Review risk and benefits of psychotropic medication treatment. Review probable length of time will need to take medications. Review risk and benefits of not undergoing psychotropic medication treatment. Review alternative treatments to psychotropic medications. Review psychotropic medications contraindications, side effects, and importance of reporting any side effects to a psychiatric provider, primary care provider, or other health direct care counselor. Review importance of her asking a psychiatric provider or primary care provider any questions or problems concerning the psychotropic medications. Review importance of reporting to a psychiatric provider, primary care provider, or other health direct care counselor if she plans to or becomes . Review safety plan and the importance to contact [facility] or [facility] , or go to the nearest emergency room, if ever a danger to yourself/others, or unable to care for yourself. Recommend upon discharge to establish routine medication management treatment with a psychiatric provider, establish routine therapy appointments, and follow-up with a primary care provider. Verify patient understands, accepts, and agrees to the information that has been provided. /[id number]/[id number]
[2018-07-08] MEDS ORDERED: HALOPERIDOL DEC (LONG-ACTING) 50 MG/ML VIAL IM ONE (15:49)
== END 2018-07-07 10:40 | disposition home or self-care (01) | DRG 885 ==
LOC: BBEH 20:20
PROVIDERS: ADMIT Psychiatry & Neurology Psychiatry; ATTEND Psychiatry & Neurology Psychiatry
DX: F25.9 Schizoaffective disorder, unspecified (principal); F17.200 Nicotine dependence, unspecified, uncomplicated; T43.506A Underdosing of unspecified antipsychotics and neuroleptics, initial encounter
CPT/HCPCS: 80305; G0480; J1631